=== PATIENT | female | born 1990 | race Caucasian/White ===

== ENCOUNTER → 2018-09-03 | Outpatient (CLI) | payer OTHER ==
[~2018-09-03] MED LIST: AMOXICILLIN500 M2 PO; CYCLOBENZAPRINE10 MG PO; MEDROL DOSEPAK4 MG PO; PREDNISONE50 MG PO
[2018-09-03 10:19] LABS: BASO % 0.3 % (0.0-1.0); EOS # 0.2 10*3/uL (0.0-0.4); EOS % 1.6 % (1.0-4.0); HEMATOCRIT 41.4 % (37.0-47.0); HEMOGLOBIN 13.3 g/dl (12.0-16.0); LYMPH % 17.3 % (27.0-41.0); MEAN CELL VOLUME 87.5 fl (81.0-99.0); MEAN CORPUSCULAR HGB 28.1 pg (27.0-31.0); MEAN CORPUSCULAR HGB CONC 32.1 g/dl (33.0-37.0); MEAN PLATELET VOLUME 10.9 fl (9.6-12.3); MONO # 0.6 10*3/uL (0.1-1.0); MONO % 5.6 % (3.0-9.0); NEUT # 8.6 10*3/uL (2.3-7.9); NEUT % 74.5 % (47.0-73.0); PLATELET COUNT AUTOMATED 336 10*3/uL (130-400); RED BLOOD COUNT 4.73 10*6/uL (4.10-5.10); RED CELL DISTRI WIDTH 13.5 % (0-14.5); WHITE BLOOD COUNT 11.5 10*3/uL (4.8-10.8)
[2018-09-04 07:07] LABS: DHEA SULFATE 224.1 ug/dL (84.8-378.0); FOLLICLE STIMULATING HORMONE 1.6 mIU/mL (.); LUTEINIZING HORMONE 004283 5.6 mIU/mL (.); PROLACTIN 004465 19.8 ng/mL (4.8-23.3)
[2018-09-05 04:05] LABS: TESTOSTERONE FREE, (DIRECT) 2.7 pg/mL (0.0-4.2)
== END | disposition home or self-care (01) ==
LOC: LAB 09:10
PROVIDERS: Nurse Practitioner Women's Health
DX: Z31.9 Encounter for procreative management, unspecified (principal); R53.83 Other fatigue